=== PATIENT | female | born 1985 | race Two or more races ===

== ENCOUNTER → 2025-04-18 | Outpatient (CLI) | payer OTHER, SELFPAY ==
[2025-04-18 15:27] LABS: Collection Type, Urine Clean Catch
--- NOTE | 2025-04-18 15:34 | XR_ITS ---
Examination: Retroperitoneal ultrasound, complete Technique: Multiple high resolution grayscale images of the retroperitoneum obtained, including kidneys and bladder. Exam date and time:April 18, 2025, 1537 hours INDICATIONS: Right flank pain beginning 6 weeks ago with difficulty urinating the last 2 weeks FINDINGS: Right kidney 11.1 cm renal cortex 1.6 cm Left kidney 11.1 cm cortex 1.9 cm Renal parenchymal scar formation, mild, bilateral No bladder mass or bladder calculi, contracted bladder IMPRESSION: No hydronephrosis or renal calculi
[2025-04-18 15:48] LABS: Bacteria,Urine Rare; Bilirubin,Urine Negative (Negative); Blood,Urine 1+ (Negative); Clarity,Urine Clear (Clear/Hazy); Color,Urine Yellow (Lt Yel-Yel); Glucose, Urine Negative (Negative); Ketones,Urine Negative (Negative); Leukocyte Esterase,Urine Negative (Negative); Nitrite,Urine Negative (Negative); PH,Urine 6.5 (5.0-7.0); Protein,Urine Trace (Neg - Trace); RBC,Urine 15 /hpf (0-3); Specific Gravity,Urine 1.029 (1.001-1.035); Squamous Epithelial Cell,Urine 3 /hpf (0-5); Urobilinogen,Urine Negative mg/dL (0.0-1.0); WBC,Urine 1 /hpf (0-5)
[2025-04-18 15:58] LABS: Albumin, Serum 4.5 gm/dL (3.5-5.0); Anion Gap 8 (7-16); BUN/Creatinine Ratio 11 Ratio (12-20); Blood Urea Nitrogen 11 mg/dL (9-23); Calcium 9.2 mg/dL (8.3-10.6); Calcium (Corrected) 9.2 mg/dL (8.5-10.1); Carbon Dioxide 28.2 mMol/L (20.0-31.0); Chloride 106 mMol/L (98-107); Creatinine (Component) 1.0 mg/dL (0.6-1.3); Glucose 83 mg/dL (74-106); Osmolality,Calculated 281 (275-295); Phosphorous 3.3 mg/dL (2.4-5.1); Potassium 3.6 mMol/L (3.4-5.1); Sodium 142 mMol/L (136-145); eGFR > 60 See Note
== END | disposition home or self-care (01) ==
PROVIDERS: PCP Internal Medicine; Referring Provider Internal Medicine; Visit Provider Internal Medicine
DX: R10.9 Unspecified abdominal pain (principal); M54.50 Low back pain, unspecified
CPT/HCPCS: 36415; 76770; 80069; 81001

== ENCOUNTER → 2025-07-18 | Outpatient (CLI) | payer OTHER, SELFPAY ==
--- NOTE | 2025-07-18 09:57 | XR_ITS ---
Examination: Toes, right foot fifth digit Technique: Toes AP oblique lateral 3 views Date and time of exam: July 18, 2025, 0902 hours INDICATIONS: Injury to the foot 3 days ago with fifth digit pain. FINDINGS: No acute fracture No dislocation No foreign body IMPRESSION: No acute fracture
== END | disposition home or self-care (01) ==
LOC: SDIM 09:49
PROVIDERS: PCP Internal Medicine; Referring Provider Internal Medicine; Visit Provider Internal Medicine
DX: S99.921A Unspecified injury of right foot, initial encounter (principal); X58.XXXA Exposure to other specified factors, initial encounter
CPT/HCPCS: 73660